=== PATIENT | female | born 2000 | race Caucasian/White ===

== ENCOUNTER 2021-08-02 00:29 | Emergency (ER) | payer MEDICAID, SELFPAY ==
[2021-08-02 00:32] VITALS: BP 122/89; PULSE 103; RESP 16; TEMP 36.8; O2SAT 99; BMI 20.2
--- NOTE | 2021-08-02 01:50 | EX.ED.VIS.UR ---
HPI HPI - URI History of Present Illness Chief Complaint: Sore Throat Narrative Narrative: Patient presenting for evaluation secondary to sore throat. Patient states over the course of the last week she has been dealing with sore throat. Associated with some nasal drainage. She denies cough. Patient denies any nausea vomiting diarrhea. Patient denies any fevers. Patient reports that she was seen at an outside facility had strep test that was found to be negative and was given supportive care management that she states is not really helping. Review of systems otherwise negative. ROS ROS ED Constitutional Constitutional ED: Denies chills or fever(s) ENT ENT ED: Reports rhinorrhea and sore throat Cardiovascular Cardiovascular: Denies chest pain Respiratory/Chest Respiratory/Chest: Denies cough or dyspnea Gastrointestinal Gastrointestinal: Denies abdominal pain, diarrhea, nausea or vomiting Genitourinary Genitourinary ED: Denies dysuria or hematuria Musculoskeletal Musculoskeletal: Denies back pain Integumentary Denies rash Neurologic Neurologic: Denies paresthesias or weakness Psychiatric Psychiatric: Denies depression Endocrine Endocrinology: Denies fatigue Allergic/Immunologic Allergic/Immunologic ED: Denies urticaria PFSH PFS Medical History Depression Home Medications sertraline [Zoloft] 25 mg PO DAILY 08/02/21 [History Last Taken Unknown] Allergy/AdvReac Type Severity Reaction Status Date / Time No Known Allergies Allergy Verified 08/02/21 00:30 Social History Smoking Status: Never smoker EXAM Physical Exam Const Vital Signs: 08/02/21 00:32 Temperature 98.3 F Temperature Source Oral Pulse Rate 103 H Respiratory Rate 16 Blood Pressure 122/89 H Blood Pressure Mean 100 Pulse Ox 99 Oxygen Delivery Method Room Air Positive well nourished and well developed Constitutional Narrative: Well-appearing age-appropriate female no acute distress sitting upright in the bed General Appearance ED: well developed and NAD HEENT Reports moist mucous membranes HEENT Narrative: Mild cobblestoning of the posterior oropharynx with evidence of some posterior pharyngeal drainage. No erythema, no palatal petechia. No exudates noted. No posterior fullness or asymmetry. Negative for trauma or tenderness Eyes EOMs intact bilaterally Neck no lymphadenopathy, supple and no JVD Chest Wall inspection of chest normal Resp normal respiratory effort and clear to auscultation bilaterally Cardio regular rate, regular rhythm, no murmurs and peripheral pulses 2+ throughout GI normal to inspection, nondistended, normoactive bowel sounds, non-tender and no masses Palpation: soft Back/Spine normal to inspection Extremity normal to inspection General Extremety ED: Negative for tenderness Neuro oriented x3 and no sensory deficits noted Sensorium / Orientation: alert Motor Exam: strength 5/5 throughout Psych mental status grossly normal Skin no rashes or lesions noted MDM MDM MDM Narrative Medical decision making narrative: Patient presented with pharyngitis. She had recent negative strep test. There is no indication for repeat testing at this time. Patient was given a dose of Decadron. She was recommended other conservative management measures. Patient was discharged in stable condition. Discharge Plan Triage Chief Complaint: Sore Throat ED Provider: Ace Ohara Dx/Rx/DC Orders Clinical Impression: Pharyngitis Instructions: ED Pharyngitis, Viral Prescriptions: No Action sertraline [Zoloft] 25 mg Tablet 25 mg PO DAILY RF: 0 Primary Care Provider: Care Physician,No Primary Referrals: Care Physician,No Primary [Primary Care Provider] - Disposition Disposition: Home, Self Care Discharge Date/Time: 08/02/21 02:08
[2021-08-02] MEDS: dexAMETHasone 4 MG Tablet 8 MG PO (02:07)
== END 2021-08-02 02:08 | disposition home or self-care (01) ==
PROVIDERS: Emergency Provider Emergency Medicine
DX: J02.9 Acute pharyngitis, unspecified (principal); F32.9 Major depressive disorder, single episode, unspecified; Z79.899 Other long term (current) drug therapy
CPT/HCPCS: 99283

== ENCOUNTER 2021-12-20 13:40 | Outpatient (CLI) | payer MEDICAID, SELFPAY | END 2021-12-20 23:59 | disposition short-term general hospital (02) | LOC: IMMUN 12-28 13:40 | PROVIDERS: Visit Provider Family Medicine | DX: Z23 Encounter for immunization (principal) ==

== ENCOUNTER 2022-11-16 01:56 | Emergency (ER) | payer MEDICAID, SELFPAY ==
[2022-11-16 01:57] VITALS: BP 124/79; PULSE 79; RESP 15; TEMP 36.1; O2SAT 99; BMI 19.1
[2022-11-16 01:59] VITALS: BP 124/79; PULSE 79; RESP 15; TEMP 36.1; O2SAT 99
--- NOTE | 2022-11-16 02:03 | EX.ED.VIS.UR ---
HPI HPI - URI History of Present Illness Chief Complaint: Sore Throat Informant: patient Onset/Context/Timing Onset: Days Context: Gradual Onset Timing: Continuous Quality: Pressure Location: Throat Worsened by: Swallowing Associated Symptoms Associated Symptoms: Negative for Nasal Congestion, Headache, Sinus Pressure, Myalgias, Nausea, Vomiting, Diarrhea, Shortness of Breath, Chest Pain, Nonproductive cough, Hemoptysis or Productive Cough Narrative Narrative: Denies anyPatient presents with sore throat that has been getting worse over the past few days. Patient describes it as a pressure in her throat. Patient states it is worse with swallowing. Patient denies any cough. Patient denies any fevers or chills. Patient states that she has been having some swelling in her gums along the third molar area. Patient denies any headache or sinus pressure. Patient denies any shortness of breath or chest pain. ROS ROS ED Constitutional Constitutional ED: Denies chills or fever(s) Eyes Eyes: Denies blurry vision or change in vision ENT ENT ED: Reports sore throat; Denies rhinorrhea Cardiovascular Cardiovascular: Denies chest pain or palpitations Respiratory/Chest Respiratory/Chest: Denies cough or dyspnea Gastrointestinal Gastrointestinal: Denies nausea or vomiting Genitourinary Genitourinary ED: Denies dysuria or hematuria Musculoskeletal Musculoskeletal: Denies back pain or neck pain Integumentary Denies abscess or rash Neurologic Neurologic: Denies headache(s) or weakness Allergic/Immunologic Allergic/Immunologic ED: Denies mouth swelling or urticaria [facility] Medical History (Updated 11/16/22 @ 02:[address] Esvin Ann DO) ADHD Depression Home Medications dextroamphetamine-amphetamine ER 15 mg 24hr capsule,extend release 15 mg PO DAILY 11/16/22 [History Last Taken Unknown] penicillin V potassium 500 mg tablet 500 mg PO 4X/DAY #40 tabs 11/16/22 [Rx Last Taken Unknown] Allergy/AdvReac Type Severity Reaction Status Date / Time No Known Allergies Allergy Verified 08/02/21 00:30 Surgical History no surgical history no surgical history Social History Smoking Status: Never smoker EXAM Physical Exam Const Vital Signs: 11/16/22 01:57 11/16/22 01:59 Temperature 97 F L 97 F L Temperature Source Temporal Temporal Pulse Rate 79 79 Respiratory Rate 15 15 Blood Pressure 124/79 H 124/79 H Blood Pressure Mean 94 94 Pulse Ox 99 99 Oxygen Delivery Method Room Air Room Air Positive well nourished and well developed General Appearance ED: well developed and NAD HEENT Reports moist mucous membranes HEENT Narrative: Oropharynx was erythematous. There are few exudates noted on the tonsils bilaterally. There is also some mild edema of the gingiva over the upper third molar areas. There is no fluctuance. There is no evidence of any abscess. Neck is supple. There is tender anterior cervical lymphadenopathy. normocephalic Throat: posterior oropharynx abnormal Positive for erythema and exudates Eyes PERRL and EOMs intact bilaterally Neck supple, no meningeal signs and no JVD General: lymphadenopathy anterior cervical Resp normal respiratory effort and clear to auscultation bilaterally Cardio Rate: regular rate Rhythm: regular rhythm GI non-tender Palpation: soft Neuro oriented x3, CN's II-XII intact bilaterally and no sensory deficits noted Sensorium / Orientation: alert Motor Exam: strength 5/5 throughout Psych mental status grossly normal MDM MDM MDM Narrative Medical decision making narrative: Patient has 3 out of 4 Cent[employer] criteria. Since the patient is having dental infection as well as pharyngitis, the patient was given a prescription for Pen-Vee K. Patient was given her first dose here. Patient was instructed to follow-up with her primary care physician in 5 to 7 days. Patient understood and was agreeable with the plan. All questions were answered. Discharge Plan Triage Chief Complaint: Sore Throat ED Provider: Esvin Ann Dx/Rx/DC Orders Clinical Impression: Pharyngitis, Dental infection Instructions: ED Pharyngitis, Strep (Confirmed) Prescriptions: New penicillin V potassium 500 MG tablet 500 mg PO 4X/DAY Qty: 40 0RF No Action dextroamphetamine-amphetamine 15 mg capsule,extended release 24hr 15 mg PO DAILY Label Comments: TAKE 1 CAPSULE BY MOUTH DAILY FOR 30 DAYS Primary Care Provider: Jake Leon Referrals: Jake Leon MD [Primary Care Provider] - 5-7 Days Disposition Disposition: Home, Self Care
[2022-11-16] MEDS: Penicillin Vk 250 MG Tablet 500 MG PO (02:24)
== END 2022-11-16 02:25 | disposition home or self-care (01) ==
LOC: ED 02:19
PROVIDERS: Emergency Provider Emergency Medicine; PCP Anesthesiology Pain Medicine; Visit Provider Emergency Medicine
DX: J02.9 Acute pharyngitis, unspecified (principal); K04.7 Periapical abscess without sinus
CPT/HCPCS: 99283